=== PATIENT | female | born 1995 | race Caucasian/White ===

== ENCOUNTER 2021-07-22 08:21 | Day surgery (SDC) | payer BC ==
[~2021-07-22 08:21] MED LIST: Lactated Ringers 1,000 ML IV SCH; Sodium Chloride 0.9% 10 ML Syringe FLUSH PRN; Sodium Chloride 0.9% 2.5 ML Syringe FLUSH PRN; Sodium Chloride 0.9% 20 ML SDV IV PRN
--- NOTE | 2021-07-22 09:53 | PCM.PREANE ---
Preanesthetic Assessment - Anesthesia/Transfusion/Family Hx Anesthesia History: Prior Anesthesia Without Reaction Transfusion History: No Prior Transfusion(s) - Review of Systems General: No Symptoms Pulmonary: No Symptoms Cardiovascular: No Symptoms Gastrointestinal: No Symptoms Neurological: No Symptoms Other: Reports: None - Physical Assessment NPO Status Date: 07/22/21 NPO Status Time: 00:00 Vital Signs: Last Vital Signs Temp 96.6 F L 07/22/21 09:00 Pulse 91 07/22/21 09:00 Resp 15 07/22/21 09:00 BP 125/89 07/22/21 09:00 Pulse Ox 96 07/22/21 09:00 Height: 5 ft 5 in Weight: 215 lb ASA Class: 2 Mental Status: Alert & Oriented x3 Airway Class: Mallampati = 2 Dentition: Reports: Normal Dentition Thyro-Mental Finger Breadths: 3 Mouth Opening Finger Breadths: 2 ROM/Head Extension: Full Lungs: Clear to Auscultation, Normal Respiratory Effort Cardiovascular: Regular Rate, Regular Rhythm - Lab Values: Laboratory Last Values Urine HCG, Qual NEGATIVE (NEGATIVE) 07/22/21 08:07 SARS-CoV-2 RNA (BEAR) NEGATIVE (NEGATIVE) 07/22/21 08:07 - Allergies Allergies/Adverse Reactions: Allergies Allergy/AdvReac Type Severity Reaction Status Date / Time adhesive tape Allergy Blisters Verified 07/16/21 15:19 - Acknowledgements Anesthesia Type Planned: General Anesthesia Pt an Appropriate Candidate for the Planned Anesthesia: Yes Alternatives and Risks of Anesthesia Discussed w Pt/Guardian: Yes Pt/Guardian Understands and Agrees with Anesthesia Plan: Yes PreAnesthesia Questionnaire HEENT History: Reports: Other (See Below) Other HEENT History: wears glasses/contacts Cardiovascular History: Reports: None Respiratory History: Reports: None Gastrointestinal History: Reports: None Genitourinary History: Reports: None TRUCK SPOTTER History: Reports: None Neurological History: Reports: Other (See Below) Other Neuro History: hx of motion sickness Psychiatric History: Reports: None Endocrine/Metabolic History: Reports: Obesity/BMI 30+ Immunologic History: Reports: None Oncologic (Cancer) History: Reports: Breast 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 Dermatologic History: Reports: None - Past Surgical History Head Surgeries/Procedures: Reports: None Cardiovascular Surgical History: Reports: Vascular Surgery Other Cardiovascular Surgeries/Procedures: Port-a-Cath placed for chemotherapy and later removed Female Surgical History: Reports: Mastectomy Other Female Surgeries/Procedures: bilateral mastectomy for cancer in right breast Musculoskeletal Surgical History: Reports: Other (See Below) Other Musculoskeletal Surgeries/Procedures:: right bunionectomy- has screw Oncologic Surgical History: Reports: Mastectomy - SUBSTANCE USE Tobacco Use Status *Q: Never Tobacco User Recreational Drug Use History: No - HOME MEDS Home Medications: Home Meds Ascorbic Acid [Vitamin C] 100 mg PO DAILY 07/16/21 [History] L.acidoph,Paracasei, B.lactis [Probiotic] 1 cap PO DAILY 07/16/21 [History] Zinc 100 mg PO DAILY 07/16/21 [History] - CURRENT (IN HOUSE) MEDS Current Meds: Current Medications Lactated Ringer's (Ringers, Lactated) 1,000 mls @ 125 mls/hr IV ASDIRECTED RAMYA Last Admin: 07/22/21 09:15 Dose: 125 mls/hr Documented by: Sodium Chloride (Sodium Chloride 0.9% 10 Ml Syringe) 10 ml FLUSH ASDIRECTED PRN PRN Reason: Keep Vein Open Sodium Chloride (Sodium Chloride 0.9% 2.5 Ml Syringe) 2.5 ml FLUSH ASDIRECTED PRN PRN Reason: Keep Vein Open Sodium Chloride (Sodium Chloride 0.9% 10 Ml Syringe) 10 ml FLUSH ASDIRECTED PRN PRN Reason: Keep Vein Open Sodium Chloride (Sodium Chloride 0.9% 2.5 Ml Syringe) 2.5 ml FLUSH ASDIRECTED PRN PRN Reason: Keep Vein Open Sodium Chloride (Sodium Chloride 0.9% 20 Ml Sdv) 10 ml IV ASDIRECTED PRN PRN Reason: IV Use
[2021-07-22] MEDS ORDERED: Propofol 200 MG/20 ML SDV ONE (13:03)
[2021-07-22] MEDS ORDERED: fentaNYL 100 MCG/2 ML SDV ONE (13:03)
[2021-07-22] MEDS ORDERED: Midazolam 1 MG/ML 2 ML SDV ONE (13:03)
--- NOTE | 2021-07-22 13:15 | PCM.OPNOTE ---
- General Post-Op/Procedure Note Date of Surgery/Procedure: 07/22/21 Operative Procedure(s): Screening colonoscopy Findings: Normal colonoscopy Pre Op Diagnosis: LiFraumanni syndrome Post-Op Diagnosis: same Anesthesia Technique: MAC Primary Surgeon: Svetlana Mckeon Condition: Good
--- NOTE | 2021-07-22 13:22 | PCM.POSTAN ---
POST ANESTHESIA ASSESSMENT - MENTAL STATUS Mental Status: Alert, Oriented - VITAL SIGNS Vital Signs: Last Vital Signs Temp 96.8 F L 07/22/21 13:10 Pulse 80 07/22/21 13:20 Resp 16 07/22/21 13:20 BP 105/67 07/22/21 13:20 Pulse Ox 98 07/22/21 13:20 - RESPIRATORY Respiratory Status: Respiratory Rate WNL, Airway Patent, O2 Saturation Stable - CARDIOVASCULAR CV Status: Pulse Rate WNL, Blood Pressure Stable - GASTROINTESTINAL GI Status: No Symptoms - POST OP HYDRATION Hydration Status: Adequate & Stable
--- NOTE | 2021-07-22 13:22 | PCM48HPAN ---
Post Anesthesia Note - EVALUATION WITHIN 48HRS OF ANESTHETIC Vital Signs in Normal Range: Yes Patient Participated in Evaluation: Yes Respiratory Function Stable: Yes Airway Patent: Yes Cardiovascular Function Stable: Yes Hydration Status Stable: Yes Pain Control Satisfactory: Yes Nausea and Vomiting Control Satisfactory: Yes Mental Status Recovered: Yes Vital Signs: Last Vital Signs Temp 96.8 F L 07/22/21 13:10 Pulse 80 07/22/21 13:20 Resp 16 07/22/21 13:20 BP 105/67 07/22/21 13:20 Pulse Ox 98 07/22/21 13:20
--- NOTE | 2021-07-22 14:31 | OR ---
SURGEON: SVETLANA MCKEON MD DATE OF PROCEDURE: 07/22/2021 PREOPERATIVE DIAGNOSIS: Li-Fraumeni syndrome. POSTOPERATIVE DIAGNOSIS: Li-Fraumeni syndrome. PROCEDURE PERFORMED: Screening colonoscopy for high-risk patient. PRIMARY SURGEON: Svetlana Mckeon MD ANESTHESIA: General. FLUIDS: See Anesthesia record. INSTRUMENT USED: Olympus colonoscope. EXTENT OF THE EXAM: To the cecum. PREPARATION: Good. LIMITATIONS: None. INDICATIONS FOR EXAMINATION: The patient is a 26-year-old female with Li-Fraumeni syndrome. This puts her at high risk for colon cancer. She is due for her first-time screening colonoscopy. I explained the procedure, expected perioperative course, and the risks. She verbalized understanding and wishes to proceed. PROCEDURE IN DETAIL: The patient was brought in to the endoscopy suite and placed in a left lateral decubitus position. A time-out was completed verifying the patient's name, age, date of , allergies, and procedure to be performed. Monitored anesthesia care was induced and continuous oxygen was provided via nasal cannula throughout the procedure. After adequate sedation was achieved, a digital rectal exam was performed. This exam was within normal limits. A well-lubricated colonoscope was inserted in the rectum and advanced under direct visualization to the level of the cecum. The cecum was identified by both visual and anatomic landmarks. A photograph was taken of the cecal cap as well as with the scope retroflexed within the cecum. The scope was then fully withdrawn while examining the color, texture, anatomy, and integrity of the mucosa from the cecum to the anal canal. The findings were consistent with normal colonic mucosa. The scope was brought into the rectum and retroflexed to allow visualization of the anal canal opening. This appeared normal and a photograph was taken. The scope was then straightened out and fully withdrawn. The cecum to anus time was 6 minutes. The patient tolerated the procedure well and was transferred to the PACU in stable condition. ENDOSCOPIC DIAGNOSIS: Normal colonoscopy. RECOMMENDATION: Follow up in clinic for repeat colonoscopy to be determined, and we will visit the patient regarding when her next scope should be. HELADIO / JASVIR /[id number]
== END 2021-07-22 13:55 | disposition home or self-care (01) ==
LOC: MW.SDS 08:21
PROVIDERS: ATTEND Surgery
DX: Z12.11 Encounter for screening for malignant neoplasm of colon (principal); E66.9 Obesity, unspecified; Z15.01 Genetic susceptibility to malignant neoplasm of breast; Z85.3 Personal history of malignant neoplasm of breast; Z91.048 Other nonmedicinal substance allergy status; Z79.899 Other long term (current) drug therapy; Z98.890 Other specified postprocedural states; Z01.812 Encounter for preprocedural laboratory examination; Z20.822 Contact with and (suspected) exposure to COVID-19; Z68.35 Body mass index [BMI] 35.0-35.9, adult
CPT/HCPCS: 45378; 81025; 87635; J2250; J2704; J3010; J7120; 00812; U0002

== ENCOUNTER 2022-05-18 12:14 | Inpatient (IN) | payer BC ==
[2022-05-18] MEDS ORDERED: Lactated Ringers 1,000 ML IV ONE (15:30)
[2022-05-18] MEDS ORDERED: Ropivacaine HCl/PF 400 MG in Premix Bag 1 BAG IV ONE (18:40)
[2022-05-18] MEDS ORDERED: Dexmedetomidine 200 MCG/2 ML SDV IV ONE (18:40)
[2022-05-18] MEDS ORDERED: Ondansetron 4 MG/2 ML SDV IVPUSH ONE (20:45)
[2022-05-19] MEDS ORDERED: Lactated Ringers 1,000 ML IV ONE (03:00)
[2022-05-19] MEDS ORDERED: Oxytocin/0.9 % Sodium Chloride 30 UNIT/500 ML BAG IV ONE (03:45)
[2022-05-19] MEDS ORDERED: oxyCODONE 5 MG Tab PO ONE ×2 (13:30→23:15)
[2022-05-19] MEDS ORDERED: Ibuprofen 400 MG Tab PO ONE (13:30)
== END 2022-05-20 19:30 | disposition home or self-care (01) | DRG 560 ==
LOC: MW.ZCENSUS 12:14 → OBSVTOIN 05-19 11:24
PROVIDERS: ADMIT Obstetrics & Gynecology; ATTEND Obstetrics & Gynecology
PROC: 10E0XZZ Delivery of Products of Conception, External Approach (ICD-10-PCS; principal; 2022-05-19)
PROC: 3E0R3BZ Introduction of Anesthetic Agent into Spinal Canal, Percutaneous Approach (ICD-10-PCS; 2022-05-19)
PROC: 3E033VJ Introduction of Other Hormone into Peripheral Vein, Percutaneous Approach (ICD-10-PCS; 2022-05-19)
PROC: 0KQM0ZZ Repair Perineum Muscle, Open Approach (ICD-10-PCS; 2022-05-19)
DX: O48.0 Post-term pregnancy (principal); Z3A.41 41 weeks gestation of pregnancy; Z37.0 Single live birth; O99.214 Obesity complicating childbirth; O99.824 Streptococcus B carrier state complicating childbirth; O70.1 Second degree perineal laceration during delivery; O77.0 Labor and delivery complicated by meconium in amniotic fluid; O69.1XX0 Labor and delivery complicated by cord around neck, with compression, not applicable or unspecified
CPT/HCPCS: 01967; 51702; 59025; 59409; A9270-GY; J2405; J2590; J2795; J7120